=== PATIENT | male | born 2000 ===

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

== ENCOUNTER 2021-08-15 13:36 | Emergency (ER) | payer OTHER ==
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
== END 2021-08-15 15:25 | disposition home or self-care (01) ==
LOC: DL.ED 13:36
DX: S60.012A Contusion of left thumb without damage to nail, initial encounter (principal); W22.09XA Striking against other stationary object, initial encounter
CPT/HCPCS: 73140-FA; 99283-25